=== PATIENT | male | born 1940 | race Caucasian/White ===

== ENCOUNTER → 2018-05-13 | Outpatient (CLI) | payer MEDICARE ==
--- NOTE | 2018-05-13 14:58 | REP ---
WHOLE BODY BONE SCAN: Following the intravenous administration of 21.9 millicuries of Technetium 99M MDP, patient's whole body was imaged in multiple projections. There is mild diffuse heterogenous uptake throughout the spine which is most compatible with diffuse arthritic changes. There is mild curvature of the thoracolumbar spine, convex to the right. There appears to be arthritic uptake at both shoulders, sternoclavicular joints and in both feet. There is no compelling scintigraphic evidence of osseous metastases. Renal and bladder activity are seen. Photopenic area in the right knee joint is compatible with a metallic prosthesis at that location. IMPRESSION: There appear to be areas of arthritic uptake as discussed in detail above. Mild diffuse heterogenous increased uptake in the spine is most consistent with diffuse arthritic uptake. There is no compelling scintigraphic evidence of osseous metastases. Electronically Signed by Nakul Grubbs MD 05/13/2018 04:56 P
== END ==
LOC: M RAD 09:44
PROVIDERS: ATTEND Nurse Practitioner Family
DX: M99.9 Biomechanical lesion, unspecified (principal)
CPT/HCPCS: 78306; A9503

== ENCOUNTER → 2019-04-24 | Outpatient (REF) | LOC: M LAB LCGH 15:34 | PROVIDERS: ATTEND Surgery | DX: Z12.11 Encounter for screening for malignant neoplasm of colon (principal); D12.2 Benign neoplasm of ascending colon; D12.3 Benign neoplasm of transverse colon ==